=== PATIENT | male | born 1995 | race African-American/Black ===

== ENCOUNTER 2019-03-11 16:45 | Emergency (ER) | payer SELFPAY ==
[~2019-03-11] VITALS: Ht 175.3 cm; Wt 74.8 kg
[2019-03-11 17:02] VITALS: BP 121/75
--- NOTE | 2019-03-11 17:06 | NUR ---
ED Nurse Note: pt walked in c/o pain to left ribs especially during inhailing. ekg done pt awaiting ermd eval pt denies any injury or fall.
--- NOTE | 2019-03-11 17:57 | Emergency Room Report ---
History of Present Illness General Chief Complaint: Pain Source: Patient Present Illness HPI 23-year-old male complaining of left-sided chest pain upon inspiration since this morning. Denies fall or trauma. States symptoms are gradually improving. Denies fever, cough, shortness of breath, vomiting, diarrhea, abdominal pain. Allergies: Coded Allergies: No Known Allergies (Unverified , 03/11/19) Patient History Past Medical History: none Past Surgical History: none Social History: Denies: smoking, alcohol use, drug use Nursing Documentation-[facility] Past Medical History: No Stated History Review of Systems All Other Systems: negative except mentioned in HPI Physical Exam Vital Signs Date Time Temp Pulse Resp B/P (MAP) Pulse Ox O2 Delivery O2 Flow Rate FiO2 03/11/19 16:56 98.2 78 18 121/75 (90) 98 Room Air Sp02 EP Interpretation: reviewed, normal General Appearance: no apparent distress, alert, GCS 15, non-toxic Respiratory: chest non-tender, lungs clear, normal breath sounds, speaking full sentences Cardiovascular #1: regular rate, rhythm, no edema, other Musculoskeletal: back normal, normal range of motion, gait/station normal, other - slight tenderness to palpation to area anterior to left axilla Neurologic: alert, motor strength/tone normal, oriented x3, sensory intact, responsive, speech normal Skin: no rash, warm/dry Medical Decision Making PA Attestation This patient was seen under the direct supervision of Dr. Hernandez, who directed all aspects of care and diagnostic interpretation. ER Course ED course HPI: 23-year-old male complaining of left-sided chest pain upon inspiration since this morning. Denies fall or trauma. States symptoms are gradually improving. Denies fever, cough, shortness of breath, vomiting, diarrhea, abdominal pain. Ddx: chest wall strain, abscess. HPI & PE consistent with: chest wall pain Orders/ Interventions: Is well-appearing, in no acute distress. No risk factors. Do not suspect pain is cardiac in etiology. EKG shows no acute changes. CXR shows no new cardiopulmonary abnormality. Disposition: Observation. Heating pad to affected area. Avoid strenuous physical activity At this time pt. is stable for d/c to home. Will provide printed patient care instructions, and any necessary prescriptions. Care plan and follow up instructions have been discussed with the patient prior to discharge. Please note that this Emergency Department Report was dictated using [employer] test technology software, occasionally this can lead to erroneous entry secondary to interpretation by the dictation equipment. EKG Diagnostic Results EKG Time: 17:00 EP Interpretation: Dr. Hernandez Rate: normal Rhythm: NSR ST Segments: no acute changes Chest X-Ray Diagnostic Results Chest X-Ray Diagnostic Results : Chest X-Ray Ordered: Yes # of Views/Limited/Complete: 1 View Indication: Chest Pain EP Interpretation: Yes PA Xray: Interpretation reviewed, by supervising MD - Dr. Hernandez, and agrees with findings. Interpretation: no consolidation, no pneumothorax, no acute cardiopulmonary disease Impression: No acute disease Electronically Signed by: Kye BARRAGAN Scribe Text FINDINGS: The lungs are clear. The cardiac and mediastinal contours are within limits. The visualized osseous structures appear within limits. IMPRESSION: No evidence of acute disease. Dictated By: Jayme Cartagena MD Electronically Signed By: Jayme Cartagena MD Signed Date/Time 03/11/19 1810 Last Vital Signs Date Time Temp Pulse Resp B/P (MAP) Pulse Ox O2 Delivery O2 Flow Rate FiO2 03/11/19 17:02 98.2 18 121/75 98 Room Air 03/11/19 16:56 78 Disposition: HOME, SELF-CARE Condition: Stable Scripts No Active Prescriptions or Reported Meds Patient Instructions: Chest Wall Pain, [id number] Additional Instructions: Followup with PCP in 2 days or return to ER if worsening symptoms, new symptoms or sudden change in condition. Kye Maria Mar 11, 2019 17:57
[2019-03-11 18:03] VITALS: BP 121/75
--- NOTE | 2019-03-11 18:04 | NUR ---
ED Nurse Note: Pt cleared by health care Provider for discharge. DC instructions was given and explained to pt and verbalized understanding of teachings. All medical deviecs such as ID band removed. Pt is AAO x4, ambulatory and left with all personal belongings.
--- NOTE | 2019-03-11 18:11 | Diagnostic Imaging Report ---
History: CP Exam: XR CXR 1 VIEW Comparison: None available FINDINGS: The lungs are clear. The cardiac and mediastinal contours are within limits. The visualized osseous structures appear within limits. IMPRESSION: No evidence of acute disease.
== END 2019-03-11 18:02 | disposition home or self-care (01) ==
LOC: EMR 18:00
DX: R07.89 Other chest pain (principal)
CPT/HCPCS: 71045; 99283